=== PATIENT | female | born 1980 | race Caucasian/White ===

== ENCOUNTER → 2016-10-13 | Outpatient (CLI) | payer OTHER ==
[~2016-10-13] MED LIST: ALBINS/ INH; ALBU0.08 INH; ALBUAER19 INH; AMITRIPTYLINE PO; BUDE1SUS INH; BUTA1CAP17 PO; CHOL1000 PO; CHOL100010 PO; DOXY100C76 PO; FRRS300 PO; IMITREX OR; MOME100A INH; MONT1TAB3 PO; OMEP40CA PO; OMEP40CA41 PO; PRED10TA PO; PRVHFAIN INH
[2016-10-13 19:08] LABS: BASO % 0.3 %; BASO ABS # 0.04 K/uL (0-0.2); COMPLETE YES; EOS % 1.4 %; IG% 0.2 %; LYMPH % 26.3 %; LYMPH ABS # 3.28 K/uL (1.2-3.4); MEAN CELL VOLUME 82.1 fL (80-100); MEAN CORPUSCULAR HEMOGLOBIN 28.1 pg (25-34); MEAN CORPUSCULAR HGB CONC 34.3 g/dl (32-36); MONO % 5.9 %; NEUT % 65.9 %; PLATELET COUNT 310 K/uL (130-400); RED BLOOD COUNT 4.87 M/uL (4.2-5.4); WHITE BLOOD COUNT 12.47 K/uL (4.8-10.8)
[2016-10-13 19:32] LABS: BLOOD UREA NITROGEN 10 mg/dl (7-18); CALCIUM 9.4 mg/dl (8.5-10.1); CARBON DIOXIDE 27 mmol/L (21-32); CHLORIDE 104 mmol/L (98-107); CREATININE 0.93 mg/dl (0.60-1.20); GLUCOSE 84 mg/dl (70-99); POTASSIUM 3.9 mmol/L (3.5-5.1); SODIUM 141 mmol/L (136-145)
--- NOTE | 2016-10-13 21:11 | DIAGNOSTIC IMAGING REPORT ---
CHEST 2 VIEWS ROUTINE HISTORY: Cough. Short of breath. COMPARISON: Chest 01/28/2014. FINDINGS: The lungs are clear. Cardiac silhouette is normal in size. No pleural effusions. No pneumothorax. IMPRESSION: No acute process. Electronically signed by: Alexandre Wei M.D. 10/13/2016 9:09 PM Dictated Date/Time: 10/13/2016 9:08 PM
== END | disposition home or self-care (01) ==
LOC: C.LAB 18:37
PROVIDERS: ATTEND Nurse Practitioner Family
DX: R06.02 Shortness of breath (principal); R05 Cough

== ENCOUNTER 2016-10-16 09:47 | Emergency (ER) | payer OTHER ==
[~2016-10-16] VITALS: Ht 162.6 cm; Wt 93.2 kg
[~2016-10-16 09:47] MED LIST changes: -ALBINS/ INH; -CHOL1000 PO; -DOXY100C76 PO; -OMEP40CA41 PO; -PRED10TA PO; -PRVHFAIN INH
[2016-10-16 09:56] VITALS: TEMP 36.6; Ht 162.6 cm; Wt 93.2 kg
[2016-10-16 10:06] VITALS: O2SAT 100
[2016-10-16] MEDS ORDERED: OPTIRAY 320 IV PRN (10:15)
[2016-10-16 10:27] LABS: BASO % 0.2 %; BASO ABS # 0.03 K/uL (0-0.2); COMPLETE YES; EOS % 0.1 %; HEMATOCRIT 39.9 % (37-47); IG% 0.3 %; LYMPH % 21.7 %; LYMPH ABS # 3.21 K/uL (1.2-3.4); MEAN CELL VOLUME 81.6 fL (80-100); MEAN CORPUSCULAR HEMOGLOBIN 27.6 pg (25-34); MEAN CORPUSCULAR HGB CONC 33.8 g/dl (32-36); MEAN PLATELET VOLUME 10.7 fL (7.4-10.4); MONO % 5.9 %; NEUT % 71.8 %; PLATELET COUNT 309 K/uL (130-400); RED BLOOD COUNT 4.89 M/uL (4.2-5.4); WHITE BLOOD COUNT 14.82 K/uL (4.8-10.8)
[2016-10-16 10:43] LABS: PARTIAL THROMBOPLASTIN RATIO 0.9; PROTHROMBIN TIME (PATIENT) 11.1 SECONDS (9.0-12.0)
[2016-10-16 10:51] LABS: BUN/CREATININE RATIO 12.3 (10-20); CALCIUM 9.4 mg/dl (8.5-10.1); CREATININE 0.97 mg/dl (0.60-1.20); POTASSIUM 3.5 mmol/L (3.5-5.1)
[2016-10-16] MEDS ORDERED: DOXY100C76 PO (10:56)
[2016-10-16] MEDS ORDERED: PRED10TA PO (10:57)
[2016-10-16] MEDS ORDERED: OMEP40CA41 PO (10:59)
[2016-10-16] MEDS ORDERED: CHOL1000 PO (11:00)
[2016-10-16] MEDS ORDERED: PRVHFAIN INH (11:03)
[2016-10-16] MEDS ORDERED: ALBINS/ INH (11:05)
--- NOTE | 2016-10-16 11:07 | EMERGENCY ROOM VISIT NOTE ---
History First contact with patient: 10:04 Chief Complaint: SHORTNESS OF BREATH Stated Complaint: SOB, ABNORMAL BLOOD WORK Nursing Triage Summary: pt c/o sob started over 1 week ago went to pcp on sunday had abnormal blood work sent here for eval of pe History of Present Illness The patient is a 36 year old female who presents to the Emergency Room via private vehicle with complaints of "shortness of breath, abnormal blood work". The patient states that she has had shortness of breath for the past week as well as pain between her shoulder blades. She states that she went to her family doctor on Sunday and was just notified today that the blood work revealed an elevated d-dimer. She states that she was sent here for evaluation of the pulmonary embolism. She does have a prior history of pulmonary embolism. She notes that her family doctor is Dr. Patel Pablo. She was placed upon prednisone on Sunday. She does note that she has minor chest pain of which began at the same time. There is associated chills. She feels that her symptoms are similar to her last pulmonary embolism. She has also had right calf swelling. She denies any history of kidney problems, smoking and is unsure why she received a pulmonary embolism in the past. Review of Systems A complete 10-point Review of Systems was discussed with the patient, with pertinent positives and negatives listed in the History of Present Illness. All remaining Review of Systems questions can be considered negative unless otherwise specified. Past Medical/Surgical History Medical Problems: (1) Asthma (2) Pneumothorax (3) Pulmonary embolus (4) Ulcer Surgical Problems: (1) H/O tubal ligation (2) History of cholecystectomy Family History Blood clots Diabetes mellitus FH: gallbladder disease FH: heart disease FH: lung disease Hypertension Social History Smoking Status: Never Smoker Alcohol Use: none Drug Use: none Marital Status: Housing Status: lives with family Occupation Status: employed Current/Historical Medications Scheduled Cholecalciferol (Vitamin D3), 1 TAB PO BID Doxycycline Monohydrate (Monodox), 100 MG PO BID Ferrous Sulfate (Ferrous Sulfate), 1 TAB PO DAILY Mometasone Furoate-Formoterol (Dulera 100/5 Mcg), 2 AER INH BID Montelukast Sodium (Singulair), 10 MG PO DAILY Omeprazole (Prilosec), 40 MG PO BID Prednisone (Prednisone), 10 MG PO UD [Amitriptyline], 1 TAB PO HS Scheduled PRN Albuterol (Ventolin Hfa), 2 PUFFS INH Q4H PRN for Shortness of Breath Albuterol Sulf (Proventil 0.083% 2.5MG/3ML), 2.5 MG INH Q4H PRN for Wheezing Budesonide (Inhalation) (Pulmicort), 1 UNIT INH BID PRN for Wheezing Augxxzszlb-Fqbpmzumkivub-Ljtxp (Fioricet), 1-2 TAB PO Q4 PRN for Pain Allergies Coded Allergies: Codeine (Verified Allergy, Unknown, HIVES, 10/16/16) Physical Exam Vital Signs Date Time Temp Pulse Resp B/P Pulse Ox O2 Delivery O2 Flow Rate FiO2 10/16/16 13:29 81 18 96/71 98 Room Air 10/16/16 13:24 79 10/16/16 13:12 90 18 125/78 97 10/16/16 12:00 75 16 143/81 98 10/16/16 11:37 79 18 120/74 99 Room Air 10/16/16 11:00 78 16 110/69 97 Room Air 10/16/16 10:15 82 10/16/16 10:08 94 20 120/76 100 Room Air 10/16/16 10:06 100 Room Air 10/16/16 09:56 36.6 81 20 147/92 99 Room Air Physical Exam VITAL SIGNS - Vital signs and nursing notes were reviewed. Patient is afebrile , blood pressure 142/92, she is nontachycardic and is saturating well on room air at 99%. GENERAL -36-year-old female appearing her stated age who is in no acute distress. Communicates well with provider and answers questions appropriately. SKIN - Without rashes. No petechial rashes. HEAD - NC/AT. EYES - Sclera anicteric. Palpebral conjunctiva pink and moist with no injection noted. EARS - No deformities of external structures noted on gross examination bilaterally. NOSE - Midline and without cyanosis. No epistaxis or purulent drainage noted. Septum midline without deviation or septal hematoma noted. MOUTH/OROPHARYNX - Without perioral cyanosis. NECK - Neck with FROM LUNGS - Chest wall symmetric without accessory muscle use, intercostals retractions, or central cyanosis. Normal vesicular breath sounds CTA B/L. No wheezes, rales, or rhonchi appreciated. CARDIAC - RRR with S1/S2. No murmur, rubs, or gallops appreciated. EXTREMITIES - No clubbing or peripheral cyanosis. No pretibial edema present. Slight tenderness to palpation of the right lower leg. Vascularly intact.. +5/ 5 strength noted in UE/LE bilaterally. Medical Decision & Procedures ER Provider Diagnostic Interpretation: ULTRASOUND RIGHT LOWER EXTREMITY VENOUS CLINICAL HISTORY: Right calf pain and swelling. COMPARISON STUDY: Bilateral lower extremity venous ultrasound dated 09/23/2013. TECHNIQUE: Real-time, grayscale, and color Doppler sonography of the deep veins of the right lower extremity was performed from the inguinal crease to the calf. Compression and augmentation were utilized. FINDINGS: There is no sonographic evidence of deep venous thrombosis identified in the right lower extremity. The common femoral, superficial femoral, and popliteal veins are patent and normally compressible. The greater saphenous vein and the profunda femoris vein at the junction with the common femoral vein are clear. The visualized calf veins are patent. IMPRESSION: There is no sonographic evidence of deep venous thrombosis identified in the right lower extremity. Electronically signed by: Franklyn Meyers M.D. 10/16/2016 12:40 PM Dictated Date/Time: 10/16/2016 12:[address] ANGIOGRAM OF THE CHEST CLINICAL HISTORY: Dyspnea. COMPARISON STUDY: Chest CT dated 02/02/2014. Chest radiograph dated 10/13/2016. TECHNIQUE: Following the IV administration of 92 cc of Optiray 320, CT angiogram of the chest was performed from the upper abdomen to the thoracic inlet utilizing the pulmonary embolus protocol. Images are reviewed in the axial, sagittal, and coronal planes. 3-D MIPS images are created and assessed. IV contrast was administered without complication. CT DOSE: 601.92 mGycm FINDINGS: Thyroid: Imaged portions of the thyroid gland are normal in size and attenuation. Thoracic aorta: The thoracic aorta is normal in caliber and demonstrates standard 3-vessel arch anatomy. No dissection is seen. Pulmonary vasculature: The pulmonary trunk is normal in caliber. There are no filling defects identified in main, lobar, or segmental pulmonary branches to suggest pulmonary embolus. Heart: The heart is normal in size and configuration, and without pericardial effusion. Lungs and pleural spaces: There is no airspace consolidation or pleural effusion. Foci of air trapping are suggested at the lung bases. The trachea and central airways are clear. Mediastinum: There is no mediastinal lymphadenopathy. Mana: Clear. Axillae: There is no axillary lymphadenopathy. Upper abdomen: Cholecystectomy clips are noted. Partially visualized upper abdominal viscera is within normal limits. Skeletal structures: No lytic or blastic bony lesions are seen. IMPRESSION: 1. There is no evidence of pulmonary embolus in the main, lobar, or segmental pulmonary arteries. 2. No airspace consolidation or pleural effusion is seen. Electronically signed by: Franklyn Meyers M.D. 10/16/2016 11:47 AM Dictated Date/Time: 10/16/2016 11:44 AM Laboratory Results 10/16/16 10:17 Red Blood Count 4.89, Mean Corpuscular Volume 81.6, Mean Corpuscular Hemoglobin 27.6, Mean Corpuscular Hemoglobin Concent 33.8, Mean Platelet Volume 10.7, Neutrophils (%) (Auto) 71.8, Lymphocytes (%) (Auto) 21.7, Monocytes (%) (Auto) 5.9, Eosinophils (%) (Auto) 0.1, Basophils (%) (Auto) 0.2, Neutrophils # (Auto) 10.64, Lymphocytes # (Auto) 3.21, Monocytes # (Auto) 0.87, Eosinophils # (Auto) 0.02, Basophils # (Auto) 0.03 10/16/16 10:17 Test 10/16/16 10:17 10/16/16 10:27 White Blood Count 14.82 K/uL (4.8-10.8) Red Blood Count 4.89 M/uL (4.2-5.4) Hemoglobin 13.5 g/dL (12.0-16.0) Hematocrit 39.9 % (37-47) Mean Corpuscular Volume 81.6 fL (80-100) Mean Corpuscular Hemoglobin 27.6 pg (25-34) Mean Corpuscular Hemoglobin Concent 33.8 g/dl (32-36) Platelet Count 309 K/uL (130-400) Mean Platelet Volume 10.7 fL (7.4-10.4) Neutrophils (%) (Auto) 71.8 % Lymphocytes (%) (Auto) 21.7 % Monocytes (%) (Auto) 5.9 % Eosinophils (%) (Auto) 0.1 % Basophils (%) (Auto) 0.2 % Neutrophils # (Auto) 10.64 K/uL (1.4-6.5) Lymphocytes # (Auto) 3.21 K/uL (1.2-3.4) Monocytes # (Auto) 0.87 K/uL (0.11-0.59) Eosinophils # (Auto) 0.02 K/uL (0-0.5) Basophils # (Auto) 0.03 K/uL (0-0.2) RDW Standard Deviation 41.5 fL (36.4-46.3) RDW Coefficient of Variation 13.9 % (11.5-14.5) Immature Granulocyte % (Auto) 0.3 % Immature Granulocyte # (Auto) 0.05 K/uL (0.00-0.02) Prothrombin Time 11.1 SECONDS (9.0-12.0) Prothromb Time International Ratio 1.0 (0.9-1.1) Activated Partial Thromboplast Time 24.3 SECONDS (21.0-31.0) Partial Thromboplastin Ratio 0.9 Anion Gap 11.0 mmol/L (3-11) Est Creatinine Clear Calc Drug Dose 90.5 ml/min Estimated GFR () 88.3 Estimated GFR (Non- 76.2 BUN/Creatinine Ratio 12.3 (10-20) Calcium Level 9.4 mg/dl (8.5-10.1) Total Bilirubin 0.2 mg/dl (0.2-1) Aspartate Amino Transf (AST/SGOT) 11 U/L (15-37) Alanine Aminotransferase (ALT/SGPT) 32 U/L (12-78) Alkaline Phosphatase 52 U/L (45-117) Total Creatine Kinase 92 U/L (26-192) Creatine Kinase MB 0.9 ng/ml (0.5-3.6) Creatine Kinase MB Ratio 1.0 (0-3.0) Total Protein 8.4 gm/dl (6.4-8.2) Albumin 4.1 gm/dl (3.4-5.0) Globulin 4.3 gm/dl (2.5-4.0) Albumin/Globulin Ratio 1.0 (0.9-2) Bedside Troponin I 0.000 ng/ml (0-0.045) Medical Decision Patient was seen and evaluated as above. After obtaining a thorough history and physical examination IV access was obtained and a CBC, CMP, CK CK-MB, coagulation studies, ekshq-br-svjk troponin, CT scan of the chest for PE secondary to subjective and objective examination findings. The patient states that she was sent here for evaluation of a pulmonary embolism therefore workup was directed towards this, particularly due to her previous history of pulmonary embolism. CBC revealed slight leukocytosis of 14.82 is elevated from 12.47 that was recorded this past Sunday. This is likely due to the prednisone that she began on Sunday. No anemia. Coagulation studies are within normal limits. There is no electrolyte abnormality. Kidney function within normal is limits. The AST is slightly low at 11. Troponin was negative. CT of the chest was negative. Ultrasound was obtained of the right leg secondary to edema. Negative for DVT. Patient is stable for discharge at this time. She was educated upon worrisome symptoms in which to return. She was to follow-up with her family doctor regarding today's visits. She had questions answered prior to discharge and was discharged home in good condition. The patient clinically looks well and is nontoxic. EKG revealed normal sinus rhythm, rate of 86 bpm. No ectopy or ischemic change. In the evaluation and treatment of this patient following differential diagnoses were entertained: PE, pneumonia, atelectasis, pneumothorax, fracture, viral URI, among others. Impression Primary Impression: Dyspnea Additional Impression: Leukocytosis Departure Information Dispostion Home / Self-Care Condition GOOD Referrals Patel Pablo III, CRNP (PCP) Patient Instructions [facility] Additional Instructions You were seen in emergency department for concern regarding pulmonary embolism/ blood clot in the lung. CT scan of the chest revealed no blood clot. Ultrasound of the right leg revealed no blood clot. Please have basic labs repeated with your family doctor. Please call your family doctor later today regarding follow-up. Please return to emergency department with any new/concerning symptoms. Problem Qualifiers Primary Impression: Dyspnea Dyspnea type: shortness of breath Qualified Codes: R06.02 - Shortness of breath
--- NOTE | 2016-10-16 11:48 | DIAGNOSTIC IMAGING REPORT ---
CT ANGIOGRAM OF THE CHEST CLINICAL HISTORY: Dyspnea. COMPARISON STUDY: Chest CT dated 02/02/2014. Chest radiograph dated 10/13/2016. TECHNIQUE: Following the IV administration of 92 cc of Optiray 320, CT angiogram of the chest was performed from the upper abdomen to the thoracic inlet utilizing the pulmonary embolus protocol. Images are reviewed in the axial, sagittal, and coronal planes. 3-D MIPS images are created and assessed. IV contrast was administered without complication. CT DOSE: 601.92 mGycm FINDINGS: Thyroid: Imaged portions of the thyroid gland are normal in size and attenuation. Thoracic aorta: The thoracic aorta is normal in caliber and demonstrates standard 3-vessel arch anatomy. No dissection is seen. Pulmonary vasculature: The pulmonary trunk is normal in caliber. There are no filling defects identified in main, lobar, or segmental pulmonary branches to suggest pulmonary embolus. Heart: The heart is normal in size and configuration, and without pericardial effusion. Lungs and pleural spaces: There is no airspace consolidation or pleural effusion. Foci of air trapping are suggested at the lung bases. The trachea and central airways are clear. Mediastinum: There is no mediastinal lymphadenopathy. Mana: Clear. Axillae: There is no axillary lymphadenopathy. Upper abdomen: Cholecystectomy clips are noted. Partially visualized upper abdominal viscera is within normal limits. Skeletal structures: No lytic or blastic bony lesions are seen. IMPRESSION: 1. There is no evidence of pulmonary embolus in the main, lobar, or segmental pulmonary arteries. 2. No airspace consolidation or pleural effusion is seen. Electronically signed by: Franklyn Meyers M.D. 10/16/2016 11:47 AM Dictated Date/Time: 10/16/2016 11:44 AM
--- NOTE | 2016-10-16 12:42 | DIAGNOSTIC IMAGING REPORT ---
ULTRASOUND RIGHT LOWER EXTREMITY VENOUS CLINICAL HISTORY: Right calf pain and swelling. COMPARISON STUDY: Bilateral lower extremity venous ultrasound dated 09/23/2013. TECHNIQUE: Real-time, grayscale, and color Doppler sonography of the deep veins of the right lower extremity was performed from the inguinal crease to the calf. Compression and augmentation were utilized. FINDINGS: There is no sonographic evidence of deep venous thrombosis identified in the right lower extremity. The common femoral, superficial femoral, and popliteal veins are patent and normally compressible. The greater saphenous vein and the profunda femoris vein at the junction with the common femoral vein are clear. The visualized calf veins are patent. IMPRESSION: There is no sonographic evidence of deep venous thrombosis identified in the right lower extremity. Electronically signed by: Franklyn Meyers M.D. 10/16/2016 12:40 PM Dictated Date/Time: 10/16/2016 12:40 PM
[2016-10-16 13:29] VITALS: BP 96/71; PULSE 81; O2SAT 98
== END 2016-10-16 13:41 | disposition home or self-care (01) ==
LOC: C.EDB 09:48
DX: R06.02 Shortness of breath (principal); D72.829 Elevated white blood cell count, unspecified; R79.1 Abnormal coagulation profile; J45.909 Unspecified asthma, uncomplicated; M25.519 Pain in unspecified shoulder; Z86.711 Personal history of pulmonary embolism; Z83.3 Family history of diabetes mellitus; Z82.49 Family history of ischemic heart disease and other diseases of the circulatory system

== ENCOUNTER → 2016-11-17 | Outpatient (CLI) | payer OTHER ==
[~2016-11-17] MED LIST changes: +ALBINS/ INH; -ALBU0.08 INH; -ALBUAER19 INH; +CHOL1000 PO; -CHOL100010 PO; +DOXY100C76 PO; -IMITREX OR; -OMEP40CA PO; +OMEP40CA41 PO; +PRED10TA PO; +PRVHFAIN INH
--- NOTE | 2016-11-20 13:48 | MAMMOGRAPHY REPORT ---
UNILATERAL LEFT DIGITAL DIAGNOSTIC MAMMOGRAM TOMOSYNTHESIS WITH CAD: 11/17/2016 CLINICAL HISTORY: The patient reports diffuse consistent left breast pain for approximately 2 months . She denies any palpable lumps, nipple discharge, or skin changes. TECHNIQUE: Breast tomosynthesis in addition to standard 2D mammography was performed. Current study was also evaluated with a Computer Aided Detection (CAD) system. Left CC and MLO 2-D and tomosynth esis images were obtained. COMPARISON: No prior exams were available for comparison. BREAST COMPOSITION: There are scattered areas of fibroglandular density in the left breast. FINDINGS: There are no suspicious masses, calcifications, or areas of architectural distortion note d in the left breast. As the pain is diffuse and nonfocal, ultrasound was not performed. IMPRESSION: ACR BI-RADS CATEGORY 1: NEGATIVE There is no mammographic evidence of malignancy in the left breast, with no etiology for diffuse lef t breast pain evident. Recommend clinical follow-up for left breast pain, and recommend routine carolee ateral screening mammograms starting at the age of 40 unless otherwise clinically indicated. The patient has been verbally notified of the results. Approximately 10% of breast cancers are not detected with mammography. A negative mammographic repor t should not delay biopsy if a clinically suggestive mass is present. Tanya Holt M.D. ah/:11/17/2016 14:07:54 Advertising Sales Executive: Pat HATCH)(Robby), [facility] letter sent: Normal 1/2 BI-RADS Code: ACR BI-RADS Category 1: Negative
== END | disposition home or self-care (01) ==
LOC: C.MAMM 13:43
PROVIDERS: ATTEND Nurse Practitioner Family
DX: N64.4 Mastodynia (principal)

== ENCOUNTER → 2016-12-05 | Outpatient (CLI) | payer OTHER ==
--- NOTE | 2016-12-10 16:38 | POLYSOMNOGRAPH REPORT ---
CLINICAL DATA: The patient is a 36-year-old female with a BMI of 36.04. She has loud snoring. She awakens during the night thinking she has stopped breathing. She has some degree of excessive daytime somnolence including sleepiness driving. On the evening of 12/05/2016 the patient had a home sleep study performed using the [employer] Live [employer] type 3 monitor. RECORDING RESULTS: Total recording time was 10 hours. The patient's estimated sleep time was 7.9 hours. RESPIRATORY DATA: The patient had a total of 12 respiratory events including 3 central apneas and 9 hypopneas. This was scored using the 4% rule. The apnea-hypopnea index was 1.5 and the KO was 1.5. The longest event was 22 seconds. This reflects no significant sleep apnea. OXIMETRY DATA: The mean saturation was 96%. Her minimum saturation was 82% but was very transient. The time below 89% was 0 minutes. HEART RATE DATA: The Heart rates ranged from 61-79 beats per minute. SNORING DATA: Snoring was present throughout most of the test. IMPRESSION: Primary snoring. COMMENTS: This study showed no evidence of significant sleep apnea. She had a small number of respiratory events as noted. Her oxygenation was basically normal. The relatively few respiratory events she did have all occurred in the supine position. RECOMMENDATIONS: 1. It is advised that the patient avoid sleeping in the supine position. 2. It is suggested that she initiate a weight reduction program in light of the elevation of body mass index of 36.04 events per hour. 3. She should be advised of the appropriate principles of sleep hygiene including having a regular sleep-wake schedule and allowing approximately 8 hours of sleep per night. DANIAL
== END | disposition home or self-care (01) ==
LOC: C.NEUR 13:00
PROVIDERS: ATTEND Internal Medicine Pulmonary Disease
DX: G47.33 Obstructive sleep apnea (adult) (pediatric) (principal)

== ENCOUNTER → 2017-05-22 | Outpatient (CLI) | payer OTHER | END | disposition home or self-care (01) | LOC: C.LAB 18:32 | PROVIDERS: ATTEND Nurse Practitioner Family | DX: E03.9 Hypothyroidism, unspecified (principal) ==

== ENCOUNTER → 2017-08-13 | Outpatient (CLI) | payer OTHER | END | disposition home or self-care (01) | LOC: C.LABSPEC 17:50 | PROVIDERS: ATTEND Nurse Practitioner Family | DX: J02.9 Acute pharyngitis, unspecified (principal) ==

== ENCOUNTER → 2017-10-03 | Outpatient (CLI) | payer OTHER ==
--- NOTE | 2017-10-03 15:10 | MAMMOGRAPHY REPORT ---
BILATERAL DIGITAL DIAGNOSTIC MAMMOGRAM TOMOSYNTHESIS WITH CAD AND TARGETED BILATERAL ULTRASOUND: 10/03 CLINICAL HISTORY: The patient reports bilateral breast pain. She also reports a possible lump in the left breast for one month. TECHNIQUE: Breast tomosynthesis in addition to standard 2D mammography was performed. Current study was also evaluated with a Computer Aided Detection (CAD) system. Bilateral CC and MLO 2-D and tomosy nthesis images were obtained. COMPARISON: Comparison is made to exam dated: 11/17/2016 mammogram - [facility]. BREAST COMPOSITION: The tissue of both breasts is almost entirely fatty. FINDINGS: Square markers kevin the sites of bilateral breast pain. There are no suspicious masses, ca lcifications, or areas of architectural distortion seen in either breast mammographically. Targeted ultrasound was performed of the areas of breast pain pointed out by the patient, in the left 11 and 1 2:00 breast, centered around 7 cm from the nipple, and right 12 to 1:00 subareolar breast. Ultrasoun d was also performed of the palpable lump pointed out by the patient in the left breast at 1:00, 5 cm from the nipple. Sonographically normal tissue is seen in these regions, without evidence of a mass or other suspicious sonographic abnormality. IMPRESSION: ACR BI-RADS CATEGORY 2: BENIGN, TARGETED ULTRASOUND ACR BI-RADS CATEGORY 2: BENIGN No suspicious mammographic or sonographic abnormalities at the sites of bilateral breast pain and lef t breast lump. There is no mammographic or targeted sonographic evidence of malignancy. Recommend c linical follow-up for bilateral breast complaints, and recommend routine bilateral screening mammogra ms starting at age of 40. The patient has been verbally notified of the results. Approximately 10% of breast cancers are not detected with mammography. A negative mammographic report should not delay biopsy if a clinically suggestive mass is present. Tanya Holt M.D. /:10/03/2017 13:30:58 Seamer Operator: Lanie HATCH)(Robby), [facility] letter sent: Normal 1/2 BI-RADS Code: ACR BI-RADS Category 2: Benign Ultrasound BI-RADS: ACR BI-RADS Category 2: Benign
== END | disposition home or self-care (01) ==
LOC: C.MAMM 13:02
PROVIDERS: ATTEND Nurse Practitioner Family
DX: N64.4 Mastodynia (principal); R92.8 Other abnormal and inconclusive findings on diagnostic imaging of breast; N63.20 Unspecified lump in the left breast, unspecified quadrant

== ENCOUNTER → 2017-11-19 | Outpatient (CLI) | payer OTHER | END | disposition home or self-care (01) | LOC: C.LABSPEC 17:49 | PROVIDERS: ATTEND Nurse Practitioner Family | DX: M54.5 Low back pain (principal) ==

== ENCOUNTER → 2017-11-24 | Outpatient (CLI) | payer OTHER ==
--- NOTE | 2017-11-24 10:52 | DIAGNOSTIC IMAGING REPORT ---
L-SPINE MIN 4 VIEWS ROUTINE HISTORY: 37 years-old Female BACK PAIN acute low back pain with radiation into the left leg COMPARISON: CT abdomen and pelvis 10/04/2015 TECHNIQUE: 5 views of the lumbar spine FINDINGS: Cholecystectomy clips noted. There are 5 nonrib-bearing lumbar-type vertebral segments present. No spondylolysis or spondylolisthesis. No acute fracture or subluxation is identified. No significant degenerative changes appreciated. Soft tissues appear unremarkable. Moderate stool volume of the right hemicolon. IMPRESSION: No acute fracture, subluxation or significant degenerative changes. The above report was generated using voice recognition software. It may contain grammatical, syntax or spelling errors. Electronically signed by: Jaime Clolier M.D. 11/24/2017 10:51 AM Dictated Date/Time: 11/24/2017 10:49 AM
== END | disposition home or self-care (01) ==
LOC: C.RAD1850 10:21
PROVIDERS: ATTEND Nurse Practitioner Family
DX: M54.5 Low back pain (principal)

== ENCOUNTER → 2018-01-04 | Day surgery (SDC) | payer OTHER ==
[2018-01-03 14:04] VITALS: Ht 162.6 cm; Wt 94.5 kg
[~2018-01-04] VITALS: Ht 162.6 cm; Wt 94.5 kg
[~2018-01-04] MED LIST changes: -AMITRIPTYLINE PO; +BUPR75TA20 PO; +CHOLCAP5 PO; +DICY20TA10 PO; -DOXY100C76 PO; +KETAMINE HCL INJ 50 MG/ML 10 ML VIAL ONE; +LEVO112T4 PO; +LIDOCAINE HCL 2% 2 ML VIAL (20MG/ML) ONE; +MIDAZOLAM HCL 1 MG/ML 2ML VIAL ONE; -OMEP40CA41 PO; -PRED10TA PO; +PROPOFOL IV EMULSION 10 MG/ML 20 ML VIAL IV ONE; +RANI150T85 PO; +SODIUM CHLORIDE 0.9% 500ML 500 ML IV ONE
--- NOTE | 2018-01-04 08:52 | Endo History and Physical ---
History & Physical Date of Service: Jan 04, 2018. 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 Past Medical History Asthma, Pulmonary Emboli, Reflux, Other Past Surgical History Hx Cardiac Surgery: No Hx Internal Defibrillator: No Hx Pacemaker: No Hx Abdominal Surgery: Yes (CHOLECYSTECTOMY; TUBAL LIGATION) Hx of Implantable Prosthesis: No Hx Post-Op Nausea and Vomiting: Yes (+PONV) Hx Cancer Surgery: No Hx Thoracic Surgery: No Hx Orthopedic: No Hx Urinary Tract Surgery: No Social History Smoking Status: Never Smoker Hx Substance Use: No Hx Alcohol Use: No Allergies Coded Allergies: Codeine (Verified Allergy, Unknown, HIVES, 01/03/18) Current Medications Reported Home Medications Medications Dose Route/Sig Max Daily Dose Days Date Category Vitamin D3 (Cholecalciferol) 5,000 Unit Cap 1 Tab PO DAILY 01/03/18 Reported Levothyroxine Sodium 112 Mcg Tab 1 Tab PO QPM 30 01/03/18 Reported Dicyclomine Hcl 20 Mg Tab 1 Tab PO QID PRN 30 01/03/18 Reported Wellbutrin (Bupropion HCl) 75 Mg Tab 75 Mg PO 01/03/18 Reported Zantac (Ranitidine HCl) 150 Mg Tab 150 Mg PO DAILY 01/03/18 Reported Proventil 0.083% 2.5MG/3ML (Albuterol Sulf) 2.5 Mg/3 Ml Nebu 2.5 Mg INH Q4H PRN 10/16/16 Reported Ventolin Hfa (Albuterol) 60 Puffs/5400 Mcg Aers 2 Puffs INH Q4H PRN 10/16/16 Reported Vitamin D3 (Cholecalciferol) 1,000 Unit Tab 1 Tab PO BID 90 10/16/16 Reported Singulair (Montelukast Sodium) 10 Mg Tab 10 Mg PO DAILY 09/24/15 Reported Ferrous Sulfate 325 Mg Tab 1 Tab PO DAILY 09/24/15 Reported Pulmicort (Budesonide (Inhalation)) 1 Mg/2 Ml Lyndsay 1 Unit INH BID PRN 08/31/13 Reported Dulera 100/5 Mcg (Mometasone Furoate-Formoterol) 1 Aer Aer 2 Aer INH BID 08/31/13 Reported Fioricet (Wmpibgngig-Ybwgeadalvbdk-Uuzst) 1 Cap Cap 1-2 Tab PO Q4 PRN 08/31/13 Reported Vital Signs Weight (Kilograms): 94.55 Height (Feet): 5 Height (Inches): 4 Physical Exam General Appearance: WD/WN, no apparent distress Respiratory/Chest: Auscultation: breath sounds normal Cardiovascular: Heart Auscultation: RRR Abdomen: Bowel Sounds: normal Inspection & Palpation: soft, non-distended, no tenderness, guarding & rebound Assessment and Plan Assessment: 37 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 Plan: Proceed with EGD.
--- NOTE | 2018-01-04 09:23 | GI REPORT ---
Procedure Date: 01/04/2018 8:57 AM Procedure: Upper GI endoscopy Indications: Gastro-esophageal reflux disease, Gastroparesis Medicines: Monitored Anesthesia Care Complications: No immediate complications. Estimated Blood Loss: Estimated blood loss: none. Procedure: Pre-Anesthesia Assessment: - Prior to the procedure, a History and Physical was performed, and patient medications and allergies were reviewed. The patient's tolerance of previous anesthesia was also reviewed. The risks and benefits of the procedure and the sedation options and risks were discussed with the patient. All questions were answered, and informed consent was obtained. Prior Anticoagulants: The patient has taken no previous anticoagulant or antiplatelet agents. ASA Grade Assessment: III - A patient with severe systemic disease. After reviewing the risks and benefits, the patient was deemed in satisfactory condition to undergo the procedure. After obtaining informed consent, the endoscope was passed under direct vision. Throughout the procedure, the patient's blood pressure, pulse, and oxygen saturations were monitored continuously. The On-site loaner was introduced through the mouth, and advanced to the second part of duodenum. The upper GI endoscopy was accomplished without difficulty. The patient tolerated the procedure well. Findings: The esophagus was normal. Localized mild inflammation characterized by erythema was found in the gastric antrum. Biopsies were taken with a cold forceps for histology. The examined duodenum was normal. Impression: - Normal esophagus. - Gastritis. Biopsied. - Normal examined duodenum. Recommendation: - Resume previous diet. - Continue present medications. - Await pathology results. - Return to primary care physician as previously scheduled. Koko Brooks DO 01/04/2018 9:23:24 AM This report has been signed electronically. Note Initiated On: 01/04/2018 8:57 AM I attest to the content of the Intraoperative Record and orders documented therein, exceptions below
--- NOTE | 2018-01-04 09:30 | Discharge Instructions ---
Endoscopy Patient Instructions Date / Procedure(s) Performed Jan 04, 2018. EGD Allergy Information Coded Allergies: Codeine (Verified Allergy, Unknown, HIVES, 01/03/18) Discharge Date / Findings Jan 04, 2018. Gastritis s/p biopsies Medication Instructions Stopped Medication(s): Patient was told to take only her inhalers and her synthroid. OK to resume all medications today as prescribed Reported Home Medications Medications Dose Route/Sig Max Daily Dose Days Date Category Vitamin D3 (Cholecalciferol) 5,000 Unit Cap 1 Tab PO DAILY 01/03/18 Reported Levothyroxine Sodium 112 Mcg Tab 1 Tab PO QPM 30 01/03/18 Reported Dicyclomine Hcl 20 Mg Tab 1 Tab PO QID PRN 30 01/03/18 Reported Wellbutrin (Bupropion HCl) 75 Mg Tab 75 Mg PO 01/03/18 Reported Zantac (Ranitidine HCl) 150 Mg Tab 150 Mg PO DAILY 01/03/18 Reported Proventil 0.083% 2.5MG/3ML (Albuterol Sulf) 2.5 Mg/3 Ml Nebu 2.5 Mg INH Q4H PRN 10/16/16 Reported Ventolin Hfa (Albuterol) 60 Puffs/5400 Mcg Aers 2 Puffs INH Q4H PRN 10/16/16 Reported Vitamin D3 (Cholecalciferol) 1,000 Unit Tab 1 Tab PO BID 90 10/16/16 Reported Singulair (Montelukast Sodium) 10 Mg Tab 10 Mg PO DAILY 09/24/15 Reported Ferrous Sulfate 325 Mg Tab 1 Tab PO DAILY 09/24/15 Reported Pulmicort (Budesonide (Inhalation)) 1 Mg/2 Ml Lyndsay 1 Unit INH BID PRN 08/31/13 Reported Dulera 100/5 Mcg (Mometasone Furoate-Formoterol) 1 Aer Aer 2 Aer INH BID 08/31/13 Reported Fioricet (Acjnwxjymr-Jghahntjqxipg-Iwmea) 1 Cap Cap 1-2 Tab PO Q4 PRN 08/31/13 Reported Provider Instructions Activity Restrictions - No exercising or heavy lifting for 24 hours. - Do not drink alcohol the day of the procedure. - Do not drive a car or operate machinery until the day after the procedure. - Do not make any important decisions or sign important papers in 24 hours after the procedure. Following Day: - Return to full activity which may include returning to work/school. Diet Start your diet with liquids and light foods (jello, soup, juice, toast). Then eat your usual diet if not nauseated. Treatment For Common After Affects For mild abdominal pain, bloating, or excessive gas: - Rest - Eat lightly - Lie on right side Follow-Up Information Follow-up with Patel EGUENE as scheduled Anesthesia Information What You Should Know You have had a procedure that required some medicine to reduce anxiety and discomfort. This treatment is called moderate sedation. After receiving the treatment, you may be sleepy, but you will be able to breathe on your own. The effects of the treatment may last for several hours. Follow these instructions along with Activity/Diet recommendations noted above: * Do NOT do anything where dizziness or clumsiness would be dangerous. * Rest quietly at home today, then you can be up and about tomorrow. * Have a responsible person stay with you the rest of today. * You may have had an I.V. today. If so, you may take the dressing off later today. Recommendations Call your doctor if: * Trouble breathing * Continuous vomiting for more than 24 hours * Temperature above 101 degrees * Severe abdominal pain or bloating * Pain not relieved by pain medicine ordered * There is increased drainage or redness from any incision * A large amount of rectal bleeding greater than 2-3 tablespoons. (If you had a polyp/s removed or have hemorrhoids, a small amount of blood - from the rectum is to be expected.) * You have any unanswered questions or concerns. IN THE EVENT OF A SERIOUS EMERGENCY, GO TO THE NEAREST EMERGENCY ROOM Your discharge instructions were prepared by provider Koko Brooks. Patient Instructions Signature Page Sue Diaz Patient (or Guardian) Signature/Date: I have read and understand the instructions given to me by my caregivers. Caregiver/RN/Doctor Signature/Date: The above-named patient and/or guardian has received patient instructions on this date. + Original Patient Signature Page (only) stays with chart. Please make copy for patient.
--- NOTE | 2018-01-04 09:37 | Anesthesiology Progress Note ---
Anesthesia Post Op Note Date & Time Jan 04, 2018 at 09:37 Vital Signs Pain Intensity: 0 Vital Signs Past 12 Hours Date Time Temp Pulse Resp B/P (MAP) Pulse Ox O2 Delivery O2 Flow Rate FiO2 01/04/18 09:31 82 20 115/86 (96) 99 Room Air 01/04/18 09:16 70 16 117/76 (90) 99 Room Air 01/04/18 08:49 36.4 82 24 140/92 (108) 98 Room Air Notes Mental Status: alert / awake / arousable, participated in evaluation Pt Amnestic to Procedure: Yes Nausea / Vomiting: adequately controlled Pain: adequately controlled Airway Patency, RR, SpO2: stable & adequate BP & HR: stable & adequate Hydration State: stable & adequate Anesthetic Complications: no major complications apparent
[2018-01-04 10:03] VITALS: BP 107/68; PULSE 80; TEMP 36.4; O2SAT 99
== END | disposition home or self-care (01) ==
LOC: C.GI 08:17
PROVIDERS: ATTEND Internal Medicine
DX: K21.9 Gastro-esophageal reflux disease without esophagitis (principal); K31.84 Gastroparesis; G47.33 Obstructive sleep apnea (adult) (pediatric); M19.90 Unspecified osteoarthritis, unspecified site; R10.12 Left upper quadrant pain; F41.9 Anxiety disorder, unspecified; D64.9 Anemia, unspecified; E66.9 Obesity, unspecified; F32.9 Major depressive disorder, single episode, unspecified; J45.909 Unspecified asthma, uncomplicated; Z86.711 Personal history of pulmonary embolism; Z98.890 Other specified postprocedural states; Z88.5 Allergy status to narcotic agent; Z79.899 Other long term (current) drug therapy

== ENCOUNTER → 2018-01-14 | Outpatient (CLI) | payer OTHER ==
[~2018-01-14] MED LIST changes: -KETAMINE HCL INJ 50 MG/ML 10 ML VIAL ONE; -LIDOCAINE HCL 2% 2 ML VIAL (20MG/ML) ONE; -MIDAZOLAM HCL 1 MG/ML 2ML VIAL ONE; -PROPOFOL IV EMULSION 10 MG/ML 20 ML VIAL IV ONE; -SODIUM CHLORIDE 0.9% 500ML 500 ML IV ONE
[2018-01-14 19:07] LABS: BASO % 0.3 %; BASO ABS # 0.03 K/uL (0-0.2); EOS % 1.1 %; HEMATOCRIT 37.7 % (37-47); HEMOGLOBIN 12.6 g/dL (12.0-16.0); IG# 0.02 K/uL (0.00-0.02); LYMPH % 27.5 %; LYMPH ABS # 2.61 K/uL (1.2-3.4); MEAN CELL VOLUME 79.2 fL (80-100); MEAN CORPUSCULAR HEMOGLOBIN 26.5 pg (25-34); MEAN CORPUSCULAR HGB CONC 33.4 g/dl (32-36); MEAN PLATELET VOLUME 11.1 fL (7.4-10.4); MONO ABS # 0.66 K/uL (0.11-0.59); NEUT % 63.9 %; NEUT ABS # 6.07 K/uL (1.4-6.5); PLATELET COUNT 320 K/uL (130-400); RED CELL DISTRIBUTION WIDTH CV 14.1 % (11.5-14.5); RED CELL DISTRIBUTION WIDTH SD 40.5 fL (36.4-46.3); WHITE BLOOD COUNT 9.49 K/uL (4.8-10.8)
[2018-01-14 19:10] LABS: ALT/SGPT 48 U/L (12-78); AST/SGOT 29 U/L (15-37); BLOOD UREA NITROGEN 9 mg/dl (7-18); CARBON DIOXIDE 23 mmol/L (21-32); CHOLESTEROL 126 mg/dl (0-200); CREATININE 0.99 mg/dl (0.60-1.20); GLUCOSE 76 mg/dl (70-99); POTASSIUM 3.9 mmol/L (3.5-5.1); SODIUM 136 mmol/L (136-145)
[2018-01-14 19:13] LABS: T3 FREE 3.67 pg/ml (2.30-4.20)
[2018-01-14 19:19] LABS: ALKALINE PHOSPHATASE 51 U/L (45-117); LDL CHOLESTEROL CALCULATED 64 mg/dl; TOTAL PROTEIN 8.3 gm/dl (6.4-8.2); TRANSFERRIN 355 mg/dl (200-360)
== END | disposition home or self-care (01) ==
LOC: C.LAB 17:58
PROVIDERS: ATTEND Nurse Practitioner Family
DX: J45.909 Unspecified asthma, uncomplicated (principal); K31.84 Gastroparesis; Z13.220 Encounter for screening for lipoid disorders; E03.9 Hypothyroidism, unspecified; E61.1 Iron deficiency; E55.9 Vitamin D deficiency, unspecified; K21.9 Gastro-esophageal reflux disease without esophagitis